=== PATIENT | female | born 1945 | race Asian ===

== ENCOUNTER 2017-08-06 13:23 | Inpatient (IN) | payer OTHER | END 2017-08-11 10:11 | disposition still patient (30) | LOC: PAVB 13:23 | PROVIDERS: ADMIT Family Medicine | DX: Z51.89 Encounter for other specified aftercare (principal) ==

== ENCOUNTER 2017-08-07 04:28 | Outpatient (CLI) | payer OTHER ==
[2017-08-07 04:48] LABS: PLATELET COUNT 391 K/uL (152-353)
[2017-08-07 05:12] LABS: POTASSIUM 4.2 mmol/L (3.6-5.2); SODIUM 138 mmol/L (136-145)
== END 2017-08-07 19:03 | disposition home or self-care (01) ==
LOC: LAB 04:28
PROVIDERS: Family Medicine
DX: D50.8 Other iron deficiency anemias (principal); F32.89 Other specified depressive episodes; Z16.24 Resistance to multiple antibiotics
CPT/HCPCS: 80053; 82728; 83540; 85027; 87081

== ENCOUNTER 2017-08-11 10:25 | Inpatient (IN) | payer OTHER | END 2017-09-11 13:04 | disposition still patient (30) | LOC: PAVB 10:25 | PROVIDERS: ADMIT Family Medicine ==

== ENCOUNTER 2017-09-11 14:15 | Inpatient (IN) | payer OTHER | END 2017-10-11 09:25 | disposition still patient (30) | LOC: PAVB 14:15 | PROVIDERS: ADMIT Family Medicine ==

== ENCOUNTER 2017-10-11 10:06 | Inpatient (IN) | payer OTHER | END 2017-11-11 09:45 | disposition still patient (30) | LOC: PAVB 10:06 | PROVIDERS: ADMIT Family Medicine ==

== ENCOUNTER 2017-11-11 10:53 | Inpatient (IN) | payer OTHER | END 2017-12-12 10:00 | disposition still patient (30) | LOC: PAVB 10:53 | PROVIDERS: ADMIT Family Medicine ==

== ENCOUNTER 2017-12-12 11:08 | Inpatient (IN) | payer OTHER | END 2018-01-09 09:24 | disposition still patient (30) | LOC: PAVB 11:08 | PROVIDERS: ADMIT Family Medicine ==

== ENCOUNTER 2018-01-09 10:31 | Inpatient (IN) | payer OTHER | END 2018-02-09 08:00 | disposition still patient (30) | LOC: PAVB 10:31 | PROVIDERS: ADMIT Family Medicine ==

== ENCOUNTER 2018-01-13 04:48 | Outpatient (CLI) | payer OTHER ==
[2018-01-13 05:23] LABS: PLATELET COUNT 328 K/uL (152-353)
[2018-01-13 05:42] LABS: POTASSIUM 4.1 mmol/L (3.6-5.2)
== END 2018-01-13 19:17 | disposition home or self-care (01) ==
LOC: LABW 04:48
PROVIDERS: Family Medicine
DX: D50.8 Other iron deficiency anemias (principal)
CPT/HCPCS: 36415; 80053; 83540; 85027

== ENCOUNTER 2018-02-09 09:00 | Inpatient (IN) | payer OTHER | END 2018-03-11 09:09 | disposition still patient (30) | LOC: PAVB 09:00 | PROVIDERS: ADMIT Family Medicine ==

== ENCOUNTER 2018-03-11 10:15 | Inpatient (IN) | payer OTHER | END 2018-04-11 08:57 | disposition still patient (30) | LOC: PAVB 10:15 | PROVIDERS: ADMIT Family Medicine ==

== ENCOUNTER 2018-03-18 09:04 | Outpatient (CLI) | payer OTHER | END 2018-03-18 19:54 | disposition home or self-care (01) | LOC: LAB 09:04 | DX: R82.99 Other abnormal findings in urine (principal) | CPT/HCPCS: 81000; 87077; 87086; 87088; 87186 ==

== ENCOUNTER 2018-04-11 10:13 | Inpatient (IN) | payer OTHER | END 2018-05-11 15:03 | disposition still patient (30) | LOC: PAVB 10:13 | PROVIDERS: ADMIT Family Medicine ==

== ENCOUNTER 2018-05-11 15:57 | Inpatient (IN) | payer OTHER | END 2018-06-11 08:00 | disposition still patient (30) | LOC: PAVB 15:57 | PROVIDERS: ADMIT Family Medicine ==

== ENCOUNTER 2018-06-11 09:00 | Inpatient (IN) | payer OTHER | END 2018-07-12 10:22 | disposition still patient (30) | LOC: PAVB 09:00 | PROVIDERS: ADMIT Family Medicine ==

== ENCOUNTER 2018-07-12 10:38 | Inpatient (IN) | payer OTHER | END 2018-08-11 09:38 | disposition still patient (30) | LOC: PAVB 10:38 | PROVIDERS: ADMIT Family Medicine ==

== ENCOUNTER 2018-08-11 12:31 | Inpatient (IN) | payer OTHER | END 2018-09-11 08:12 | disposition still patient (30) | LOC: PAVB 12:31 → PAVA 08-23 15:00 | PROVIDERS: ADMIT Family Medicine ==

== ENCOUNTER 2018-09-11 08:35 | Inpatient (IN) | payer OTHER | END 2018-10-11 08:07 | disposition still patient (30) | LOC: PAVA 08:35 | PROVIDERS: ADMIT Family Medicine ==

== ENCOUNTER 2018-10-11 08:25 | Inpatient (IN) | payer OTHER | END 2018-11-11 10:23 | disposition still patient (30) | LOC: PAVA 08:25 | PROVIDERS: ADMIT Family Medicine ==

== ENCOUNTER 2018-11-01 20:44 | Emergency (ER) | payer OTHER ==
[~2018-11-01] VITALS: Ht 160 cm; Wt 59.4 kg
[2018-11-01 22:18] VITALS: BP 148/83; TEMP 98.2
== END 2018-11-01 22:22 ==
LOC: ED 20:44
DX: Z51.89 Encounter for other specified aftercare (principal); W06.XXXA Fall from bed, initial encounter; Y92.128 Other place in nursing home as the place of occurrence of the external cause
CPT/HCPCS: 99282

== ENCOUNTER 2018-11-11 11:02 | Inpatient (IN) | payer OTHER | END 2018-12-12 14:18 | disposition still patient (30) | LOC: PAVA 11:02 | PROVIDERS: ADMIT Family Medicine ==

== ENCOUNTER 2018-12-12 14:18 | Inpatient (IN) | payer OTHER | END 2019-01-09 09:16 | disposition still patient (30) | LOC: PAVA 14:18 | PROVIDERS: ADMIT Family Medicine ==

== ENCOUNTER 2018-12-24 02:46 | Emergency (ER) | payer OTHER ==
[~2018-12-24] VITALS: Ht 160 cm; Wt 59.4 kg
[2018-12-24 04:13] VITALS: BP 138/88; TEMP 98.1
== END 2018-12-24 04:14 ==
LOC: ED 02:46
DX: K94.29 Other complications of gastrostomy (principal)
CPT/HCPCS: 99282

== ENCOUNTER 2019-01-09 10:09 | Inpatient (IN) | payer OTHER | END 2019-02-09 07:57 | disposition still patient (30) | LOC: PAVA 10:09 | PROVIDERS: ADMIT Family Medicine ==

== ENCOUNTER 2019-02-07 17:45 | Outpatient (CLI) | payer OTHER ==
[2019-02-07 18:07] LABS: PLATELET COUNT 219 K/uL (152-353)
[2019-02-07 18:20] LABS: POTASSIUM 4.6 mmol/L (3.6-5.2)
== END 2019-02-07 19:54 | disposition home or self-care (01) ==
LOC: LAB 17:45
PROVIDERS: Family Medicine
DX: D64.9 Anemia, unspecified (principal); R68.89 Other general symptoms and signs; R79.89 Other specified abnormal findings of blood chemistry
CPT/HCPCS: 36415; 80053; 83540; 85027

== ENCOUNTER 2019-02-09 08:39 | Inpatient (IN) | payer OTHER | END 2019-03-11 09:44 | disposition still patient (30) | LOC: PAVA 08:39 | PROVIDERS: ADMIT Family Medicine ==

== ENCOUNTER 2019-03-11 11:07 | Inpatient (IN) | payer OTHER | END 2019-04-11 08:14 | disposition still patient (30) | LOC: PAVA 11:07 | PROVIDERS: ADMIT Family Medicine | DX: Z51.89 Encounter for other specified aftercare (principal) ==

== ENCOUNTER 2019-04-11 08:32 | Inpatient (IN) | payer OTHER | END 2019-05-11 08:32 | disposition still patient (30) | LOC: PAVA 08:32 | PROVIDERS: ADMIT Family Medicine ==

== ENCOUNTER 2019-05-11 09:24 | Inpatient (IN) | payer OTHER | END 2019-06-11 09:09 | disposition still patient (30) | LOC: PAVA 09:24 | PROVIDERS: ADMIT Family Medicine ==

== ENCOUNTER 2019-05-28 13:36 | Outpatient (CLI) | payer OTHER | END 2019-05-28 23:07 | disposition home or self-care (01) | LOC: RAD 13:36 | DX: M25.511 Pain in right shoulder (principal) ==

== ENCOUNTER 2019-06-11 10:19 | Inpatient (IN) | payer OTHER | END 2019-07-12 16:00 | disposition still patient (30) | LOC: PAVA 10:19 | PROVIDERS: ADMIT Family Medicine ==

== ENCOUNTER 2019-07-12 16:01 | Inpatient (IN) | payer OTHER | END 2019-08-11 08:07 | disposition still patient (30) | LOC: PAVA 16:01 | PROVIDERS: ADMIT Family Medicine ==

== ENCOUNTER 2019-07-13 03:41 | Outpatient (CLI) | payer OTHER ==
[2019-07-13 06:43] LABS: PLATELET COUNT 207 K/uL (152-353)
[2019-07-13 08:17] LABS: POTASSIUM 4.5 mmol/L (3.6-5.2)
== END 2019-07-13 21:47 ==
LOC: LAB 03:41
PROVIDERS: Family Medicine
DX: D50.8 Other iron deficiency anemias (principal); D64.89 Other specified anemias
CPT/HCPCS: 36415; 80053; 83540; 85027

== ENCOUNTER 2019-08-11 09:18 | Inpatient (IN) | payer OTHER ==
[2019-09-10] MEDS ORDERED: PROTEINE1 PEG (21:23)
[2019-09-10] MEDS ORDERED: HALOPERIDOL0.5 MG PO (21:27)
[2019-09-10] MEDS ORDERED: MILK OF MAGNESI1 SU1 PO (21:30)
[2019-09-10] MEDS ORDERED: TYLENOL325 MG PEG (21:31)
[2019-09-10] MEDS ORDERED: AMLO2.5T PO (21:32)
[2019-09-10] MEDS ORDERED: LEXAPRO10 MG PEG (21:33)
[2019-09-10] MEDS ORDERED: DONE5TAB PO (21:33)
[2019-09-10] MEDS ORDERED: EQL IRON SUPPL325 M1 PO (21:34)
[2019-09-10] MEDS ORDERED: MULT VITAMI1 PEG (21:35)
[2019-09-10] MEDS ORDERED: OMEP20CA PO (21:36)
[2019-09-10] MEDS ORDERED: JUVE1 PEG (21:37)
== END 2019-09-11 09:04 | disposition still patient (30) ==
LOC: PAVA 09:18
PROVIDERS: ADMIT Family Medicine

== ENCOUNTER 2019-09-10 07:19 | Emergency (ER) | payer OTHER ==
[~2019-09-10] VITALS: Ht 160 cm; Wt 59.4 kg
[2019-09-10 08:20] LABS: PLATELET COUNT 231 K/uL (152-353)
[2019-09-10 08:50] VITALS: BP 136/81; TEMP 98.3
[2019-09-10] MEDS ORDERED: PROTEINE1 PEG (21:23)
[2019-09-10] MEDS ORDERED: HALOPERIDOL0.5 MG PO (21:27)
[2019-09-10] MEDS ORDERED: MILK OF MAGNESI1 SU1 PO (21:30)
[2019-09-10] MEDS ORDERED: TYLENOL325 MG PEG (21:31)
[2019-09-10] MEDS ORDERED: AMLO2.5T PO (21:32)
[2019-09-10] MEDS ORDERED: DONE5TAB PO (21:33)
[2019-09-10] MEDS ORDERED: LEXAPRO10 MG PEG (21:33)
[2019-09-10] MEDS ORDERED: EQL IRON SUPPL325 M1 PO (21:34)
[2019-09-10] MEDS ORDERED: MULT VITAMI1 PEG (21:35)
[2019-09-10] MEDS ORDERED: OMEP20CA PO (21:36)
[2019-09-10] MEDS ORDERED: JUVE1 PEG (21:37)
== END 2019-09-10 08:50 ==
LOC: ED 07:19
PROVIDERS: Emergency Medicine
DX: R10.84 Generalized abdominal pain (principal); R14.1 Gas pain; K59.09 Other constipation
CPT/HCPCS: 85027; 99283

== ENCOUNTER 2019-09-10 11:15 | Inpatient (IN) | payer OTHER ==
[2019-09-10] VITALS (7 sets, daily range): BP systolic 107–130; BP diastolic 63–92; TEMP 98.9–100.2; Ht 160 cm; Wt 65.8 kg
[~2019-09-10] VITALS: Ht 160 cm; Wt 65.8 kg
[2019-09-10 12:12] LABS: POTASSIUM 3.9 mmol/L (3.6-5.2)
[2019-09-10] MEDS ORDERED: PROTEINE1 PEG (21:23)
[2019-09-10] MEDS ORDERED: HALOPERIDOL0.5 MG PO (21:27)
[2019-09-10] MEDS ORDERED: MILK OF MAGNESI1 SU1 PO (21:30)
[2019-09-10] MEDS ORDERED: TYLENOL325 MG PEG (21:31)
[2019-09-10] MEDS ORDERED: AMLO2.5T PO (21:32)
[2019-09-10] MEDS ORDERED: LEXAPRO10 MG PEG (21:33)
[2019-09-10] MEDS ORDERED: DONE5TAB PO (21:33)
[2019-09-10] MEDS ORDERED: EQL IRON SUPPL325 M1 PO (21:34)
[2019-09-10] MEDS ORDERED: MULT VITAMI1 PEG (21:35)
[2019-09-10] MEDS ORDERED: OMEP20CA PO (21:36)
[2019-09-10] MEDS ORDERED: JUVE1 PEG (21:37)
[2019-09-11 00:25] VITALS: BP 143/85; TEMP 98.5
[2019-09-11 04:00] VITALS: BP 116/84; TEMP 98.7
[2019-09-11 05:08] LABS: PLATELET COUNT 238 K/uL (152-353)
[2019-09-11 06:01] LABS: POTASSIUM 3.8 mmol/L (3.6-5.2)
[2019-09-11 08:00] VITALS: BP 146/81; TEMP 98.9
[2019-09-11 12:00] VITALS: BP 152/81; TEMP 97.4
== END 2019-09-11 14:30 | DRG 641 ==
LOC: ED 11:20 → MED/SURG 12:40
PROVIDERS: Emergency Medicine; ADMIT Family Medicine
DX: E86.0 Dehydration (principal); G40.802 Other epilepsy, not intractable, without status epilepticus; K56.41 Fecal impaction; R50.9 Fever, unspecified; E11.9 Type 2 diabetes mellitus without complications; I10 Essential (primary) hypertension; G30.8 Other Alzheimer's disease; F02.80 Dementia in other diseases classified elsewhere, unspecified severity, without behavioral disturbance, psychotic disturbance, mood disturbance, and anxiety
CPT/HCPCS: 36415; 80048; 80053; 81000; 83605; 85027; 87040; 87502; 87651; 99283; J7120

== ENCOUNTER 2019-09-11 11:06 | Inpatient (IN) | payer OTHER ==
[~2019-09-11 11:06] MED LIST: AMLO2.5T PO; DONE5TAB PO; EQL IRON SUPPL325 M1 PO; HALOPERIDOL0.5 MG PO; JUVE1 PEG; LEXAPRO10 MG PEG; MILK OF MAGNESI1 SU1 PO; MULT VITAMI1 PEG; OMEP20CA PO; PROTEINE1 PEG; TYLENOL325 MG PEG
== END 2019-10-11 08:00 | disposition still patient (30) ==
LOC: PAVA 11:06
PROVIDERS: ADMIT Family Medicine

== ENCOUNTER 2019-09-14 03:54 | Outpatient (CLI) | payer OTHER ==
[2019-09-14 05:46] LABS: POTASSIUM 4.5 mmol/L (3.6-5.2)
== END 2019-09-14 19:22 | disposition home or self-care (01) ==
LOC: LAB 03:54
PROVIDERS: Family Medicine
DX: R79.89 Other specified abnormal findings of blood chemistry (principal); R10.9 Unspecified abdominal pain
CPT/HCPCS: 80048

== ENCOUNTER 2019-10-11 09:44 | Inpatient (IN) | payer OTHER | END 2019-11-11 08:00 | disposition still patient (30) | LOC: PAVA 09:44 | PROVIDERS: ADMIT Family Medicine ==

== ENCOUNTER 2019-11-11 08:32 | Inpatient (IN) | payer OTHER | END 2019-12-12 09:32 | disposition still patient (30) | LOC: PAVA 08:32 | PROVIDERS: ADMIT Family Medicine ==

== ENCOUNTER 2019-12-12 09:52 | Inpatient (IN) | payer OTHER | END 2020-01-10 12:47 | disposition still patient (30) | LOC: PAVA 09:52 | PROVIDERS: ADMIT Family Medicine ==

== ENCOUNTER 2020-01-10 13:09 | Inpatient (IN) | payer OTHER | END 2020-02-10 09:00 | disposition still patient (30) | LOC: PAVA 13:09 | PROVIDERS: ADMIT Family Medicine ==

== ENCOUNTER 2020-01-12 05:16 | Outpatient (CLI) | payer OTHER ==
[2020-01-12 07:37] LABS: PLATELET COUNT 229 K/uL (152-353)
[2020-01-12 08:14] LABS: POTASSIUM 3.5 mmol/L (3.6-5.2)
== END 2020-01-12 19:32 | disposition home or self-care (01) ==
LOC: LAB 05:16
PROVIDERS: Family Medicine
DX: D64.89 Other specified anemias (principal); D50.8 Other iron deficiency anemias; K21.9 Gastro-esophageal reflux disease without esophagitis
CPT/HCPCS: 80053; 83540; 85027

== ENCOUNTER 2020-02-10 09:33 | Inpatient (IN) | payer OTHER | END 2020-03-11 08:04 | disposition still patient (30) | LOC: PAVA 09:33 | PROVIDERS: ADMIT Family Medicine ==

== ENCOUNTER 2020-03-11 08:57 | Inpatient (IN) | payer OTHER | END 2020-04-11 08:13 | disposition still patient (30) | LOC: PAVA 08:57 | PROVIDERS: ADMIT Family Medicine | CPT/HCPCS: 87635; U0002 ==

== ENCOUNTER 2020-03-11 17:27 | Outpatient (CLI) | payer OTHER ==
[2020-03-11 17:47] LABS: PLATELET COUNT 210 K/uL (152-353)
== END 2020-03-11 21:50 | disposition home or self-care (01) ==
LOC: LABW 17:27
PROVIDERS: Family Medicine
DX: R50.9 Fever, unspecified (principal); R82.998 Other abnormal findings in urine
CPT/HCPCS: 36415; 81000; 85027; 87088

== ENCOUNTER 2020-04-11 08:48 | Inpatient (IN) | payer OTHER | END 2020-05-11 08:27 | disposition still patient (30) | LOC: PAVA 08:48 | PROVIDERS: ADMIT Family Medicine | CPT/HCPCS: 87635; U0002 ==

== ENCOUNTER 2020-05-11 09:55 | Inpatient (IN) | payer OTHER | END 2020-06-11 08:24 | disposition still patient (30) | LOC: PAVA 09:55 | PROVIDERS: ADMIT Family Medicine ==

== ENCOUNTER 2020-05-26 13:43 | Outpatient (CLI) | payer OTHER ==
[2020-05-26 14:03] LABS: PLATELET COUNT 280 K/uL (152-353)
[2020-05-26 14:23] LABS: POTASSIUM 4.3 mmol/L (3.6-5.2); SODIUM 141 mmol/L (136-145)
== END 2020-05-26 22:54 | disposition home or self-care (01) ==
LOC: LAB 13:43
PROVIDERS: Family Medicine
DX: R61 Generalized hyperhidrosis (principal)
CPT/HCPCS: 80053; 82550; 84443; 84484; 85027

== ENCOUNTER 2020-05-26 13:48 | Outpatient (CLI) | payer OTHER | END 2020-05-26 22:54 | disposition home or self-care (01) | LOC: RESP 13:48 | DX: R61 Generalized hyperhidrosis (principal) | CPT/HCPCS: 93005 ==

== ENCOUNTER 2020-06-11 09:04 | Inpatient (IN) | payer OTHER | END 2020-07-12 10:51 | disposition still patient (30) | LOC: PAVA 09:04 | PROVIDERS: ADMIT Family Medicine ==

== ENCOUNTER 2020-07-04 23:29 | Emergency (ER) | payer OTHER ==
[~2020-07-04] VITALS: Ht 160 cm; Wt 65.8 kg
[2020-07-04 23:45] VITALS: BP 152/126; TEMP 99.5
== END 2020-07-04 23:45 | disposition home or self-care (01) ==
LOC: ED 23:29
DX: K94.23 Gastrostomy malfunction (principal)
CPT/HCPCS: 99282

== ENCOUNTER 2020-07-12 11:35 | Inpatient (IN) | payer OTHER | END 2020-08-11 09:34 | disposition still patient (30) | LOC: PAVA 11:35 | PROVIDERS: ADMIT Family Medicine ==

== ENCOUNTER 2020-07-14 06:34 | Outpatient (CLI) | payer OTHER ==
[2020-07-14 07:32] LABS: PLATELET COUNT 290 K/uL (152-353)
[2020-07-14 17:33] LABS: POTASSIUM 4.2 mmol/L (3.6-5.2)
== END 2020-07-14 21:46 | disposition home or self-care (01) ==
LOC: LAB 06:34
PROVIDERS: Family Medicine
DX: D64.89 Other specified anemias (principal); D50.8 Other iron deficiency anemias; K21.9 Gastro-esophageal reflux disease without esophagitis; F01.51 Vascular dementia, unspecified severity, with behavioral disturbance
CPT/HCPCS: 80053; 83540; 85027

== ENCOUNTER 2020-08-11 10:56 | Inpatient (IN) | payer OTHER | END 2020-09-11 08:00 | disposition still patient (30) | LOC: PAVA 10:56 | PROVIDERS: ADMIT Family Medicine ==

== ENCOUNTER 2020-09-11 09:00 | Inpatient (IN) | payer OTHER | END 2020-10-11 08:39 | disposition still patient (30) | LOC: PAVA 09:00 | PROVIDERS: ADMIT Family Medicine; ATTEND Family Medicine ==

== ENCOUNTER 2020-10-11 09:38 | Inpatient (IN) | payer OTHER | END 2020-11-11 08:30 | disposition still patient (30) | LOC: PAVA 09:38 | PROVIDERS: ADMIT Family Medicine; ATTEND Family Medicine ==

== ENCOUNTER 2020-11-11 09:01 | Inpatient (IN) | payer OTHER | END 2020-12-12 13:10 | disposition home or self-care (01) | LOC: PAVA 09:01 | PROVIDERS: ADMIT Family Medicine; ATTEND Family Medicine ==

== ENCOUNTER 2020-11-17 15:01 | Outpatient (CLI) | payer OTHER | END 2020-11-17 21:19 | disposition home or self-care (01) | LOC: LAB 15:01 | PROVIDERS: ATTEND Family Medicine | DX: K94.22 Gastrostomy infection (principal) | CPT/HCPCS: 87070; 87077; 87186; 87205 ==

== ENCOUNTER 2022-07-20 16:05 | Inpatient (IN) | payer OTHER | END 2022-08-11 10:39 | disposition still patient (30) | LOC: PAVC 16:05 | PROVIDERS: ADMIT Internal Medicine; ATTEND Internal Medicine ==

== ENCOUNTER 2022-07-21 06:58 | Outpatient (CLI) | payer OTHER | END 2022-07-21 19:24 | disposition home or self-care (01) | LOC: LAB 06:58 | PROVIDERS: ATTEND Internal Medicine | DX: R68.89 Other general symptoms and signs (principal); B96.89 Other specified bacterial agents as the cause of diseases classified elsewhere | CPT/HCPCS: 87081 ==

== ENCOUNTER 2022-07-23 15:50 | Outpatient (CLI) | payer OTHER ==
[2022-07-23 16:18] LABS: PLATELET COUNT 383 K/uL (152-353)
[2022-07-23 16:36] LABS: POTASSIUM 4.4 mmol/L (3.6-5.2)
== END 2022-07-23 19:24 | disposition home or self-care (01) ==
LOC: LAB 15:50
PROVIDERS: ATTEND Internal Medicine
DX: Z02.0 Encounter for examination for admission to educational institution (principal); R89.5 Abnormal microbiological findings in specimens from other organs, systems and tissues
CPT/HCPCS: 36415; 80053; 84134; 85027; 85652; 87070; 87077; 87186; 87205

== ENCOUNTER 2022-07-25 12:25 | Outpatient (CLI) | payer OTHER | END 2022-07-25 18:52 | disposition home or self-care (01) | LOC: LAB 12:25 | PROVIDERS: ATTEND Internal Medicine | DX: R31.9 Hematuria, unspecified (principal) | CPT/HCPCS: 81000; 87077; 87086; 87088; 87186 ==

== ENCOUNTER 2022-07-30 11:57 | Outpatient (CLI) | payer OTHER ==
[~2022-07-30] VITALS: Ht 157.5 cm; Wt 54.4 kg
[2022-07-30 13:44] VITALS: BP 149/41; TEMP 98.7
--- NOTE | 2022-07-30 14:04 | NUR ---
1344 PT ARRIVED TO ROOM 1128 VIA [facility] CHAIR ACCOMPANIED BY [facility]. VS OBTAINED. 22G PIV TO RFA WILL NOT FLUSH. IV REMOVED INTACT. SITE CARE PROVIDED. 1400 22G PIV TO LFA X 1 ATTEMPT. SECURED WITH TEGADERM 1402 ORDERS SCANNED TO PHARMACY.
--- NOTE | 2022-07-30 14:50 | NUR ---
1449 ROCEPHIN STARTED INFUSING AT THIS TIME. WITH NO COMPLICATIONS
--- NOTE | 2022-07-30 15:11 | NUR ---
NOTIFIED CHARISSA ON CHALL PT IS READY FOR D/C
--- NOTE | 2022-07-30 15:14 | NUR ---
1513 INFUSION COMPLETED PIV TO RFA FLUSHED WITH 10ML NS. CAPPED WITH CUROS
--- NOTE | 2022-07-30 15:20 | NUR ---
PT ASSISTED OUT OF FACILITY VIA [facility] CHAIR. ACCOMPANIED BY [facility].
== END 2022-07-30 20:33 | disposition home or self-care (01) ==
LOC: INF 11:57
PROVIDERS: ATTEND Internal Medicine
DX: T07.XXXA Unspecified multiple injuries, initial encounter (principal)
CPT/HCPCS: 96365; J0696

== ENCOUNTER 2022-07-31 10:49 | Outpatient (CLI) | payer OTHER ==
[~2022-07-31] VITALS: Ht 154.9 cm; Wt 54.4 kg
[2022-07-31 10:49] VITALS: BP 160/75; TEMP 98.1
[2022-07-31 12:15] VITALS: BP 156/68; TEMP 98
== END 2022-07-31 20:22 | disposition home or self-care (01) ==
LOC: INF 10:49
PROVIDERS: ATTEND Internal Medicine
DX: T07.XXXA Unspecified multiple injuries, initial encounter (principal)
CPT/HCPCS: 96365; J0696

== ENCOUNTER 2022-08-11 14:51 | Inpatient (IN) | payer OTHER | END 2022-09-11 12:15 | disposition still patient (30) | LOC: PAVC 14:51 | PROVIDERS: ADMIT Internal Medicine; ATTEND Internal Medicine ==

== ENCOUNTER 2022-09-11 14:15 | Inpatient (IN) | payer OTHER | END 2022-10-11 15:33 | disposition still patient (30) | LOC: PAVC 14:15 | PROVIDERS: ADMIT Internal Medicine; ATTEND Internal Medicine ==

== ENCOUNTER 2022-10-11 16:21 | Inpatient (IN) | payer OTHER | END 2022-11-11 10:55 | disposition still patient (30) | LOC: PAVC 16:21 | PROVIDERS: ADMIT Internal Medicine; ATTEND Internal Medicine ==

== ENCOUNTER 2022-11-11 14:27 | Inpatient (IN) | payer OTHER | END 2022-12-12 09:29 | disposition still patient (30) | LOC: PAVC 14:27 | PROVIDERS: ADMIT Internal Medicine; ATTEND Internal Medicine ==

== ENCOUNTER 2022-12-12 12:31 | Inpatient (IN) | payer OTHER | END 2023-01-09 15:22 | disposition still patient (30) | LOC: PAVC 12:31 | PROVIDERS: ADMIT Internal Medicine; ATTEND Internal Medicine ==

== ENCOUNTER 2023-01-09 08:15 | Outpatient (CLI) | payer OTHER ==
[2023-01-09 08:28] LABS: PLATELET COUNT 288 K/uL (152-353)
[2023-01-09 08:42] LABS: POTASSIUM 4.5 mmol/L (3.6-5.2)
== END 2023-01-09 19:11 | disposition home or self-care (01) ==
LOC: LAB 08:15
PROVIDERS: ATTEND Internal Medicine
DX: G30.9 Alzheimer's disease, unspecified (principal); Z79.899 Other long term (current) drug therapy
CPT/HCPCS: 80053; 80061; 85027

== ENCOUNTER 2023-01-09 16:17 | Inpatient (IN) | payer OTHER | END 2023-02-09 12:53 | disposition still patient (30) | LOC: PAVC 16:17 | PROVIDERS: ADMIT Internal Medicine; ATTEND Internal Medicine ==

== ENCOUNTER 2023-02-09 13:26 | Inpatient (IN) | payer OTHER | END 2023-03-11 16:43 | disposition still patient (30) | LOC: PAVC 13:26 | PROVIDERS: ADMIT Internal Medicine; ATTEND Internal Medicine ==

== ENCOUNTER 2023-03-11 17:50 | Inpatient (IN) | payer OTHER ==
[~2023-03-11] VITALS: Ht 167.6 cm; Wt 54.4 kg
== END 2023-04-11 12:20 | disposition still patient (30) ==
LOC: PAVC 17:50
PROVIDERS: ADMIT Internal Medicine; ATTEND Internal Medicine

== ENCOUNTER 2023-04-05 12:13 | Outpatient (CLI) | payer OTHER | END 2023-04-05 18:59 | disposition home or self-care (01) | LOC: LAB 12:13 | PROVIDERS: ATTEND Internal Medicine | DX: Z48.00 Encounter for change or removal of nonsurgical wound dressing (principal) | CPT/HCPCS: 87070; 87077; 87186; 87205 ==

== ENCOUNTER 2023-04-11 08:25 | Outpatient (CLI) | payer OTHER ==
[~2023-04-11] VITALS: Ht 167.6 cm; Wt 24.6 kg
[2023-04-11 08:30] VITALS: BP 144/57; TEMP 97.1
[2023-04-11 09:37] VITALS: BP 166/74; TEMP 98.4
== END 2023-04-11 19:10 | disposition home or self-care (01) ==
LOC: INF 08:25
PROVIDERS: ATTEND Internal Medicine
DX: Z48.00 Encounter for change or removal of nonsurgical wound dressing (principal); B96.20 Unspecified Escherichia coli [E. coli] as the cause of diseases classified elsewhere
CPT/HCPCS: 96365; J1580

== ENCOUNTER 2023-04-11 12:33 | Inpatient (IN) | payer OTHER | END 2023-05-11 17:43 | disposition still patient (30) | LOC: PAVC 12:33 | PROVIDERS: ADMIT Internal Medicine; ATTEND Internal Medicine ==

== ENCOUNTER 2023-04-12 08:04 | Outpatient (CLI) | payer OTHER ==
[~2023-04-12] VITALS: Ht 167.6 cm; Wt 54.4 kg
[2023-04-12 08:10] VITALS: BP 181/63; TEMP 98.9
== END 2023-04-12 18:55 | disposition home or self-care (01) ==
LOC: INF 08:04
PROVIDERS: ATTEND Internal Medicine
DX: Z48.00 Encounter for change or removal of nonsurgical wound dressing (principal); B96.20 Unspecified Escherichia coli [E. coli] as the cause of diseases classified elsewhere
CPT/HCPCS: 96365; J1580

== ENCOUNTER 2023-04-13 08:07 | Outpatient (CLI) | payer OTHER ==
[~2023-04-13] VITALS: Ht 167.6 cm; Wt 54.4 kg
== END 2023-04-13 19:28 | disposition home or self-care (01) ==
LOC: INF 08:07
PROVIDERS: ATTEND Internal Medicine
DX: Z48.00 Encounter for change or removal of nonsurgical wound dressing (principal); B96.20 Unspecified Escherichia coli [E. coli] as the cause of diseases classified elsewhere
CPT/HCPCS: 96365; J1580

== ENCOUNTER 2023-04-14 08:53 | Outpatient (CLI) | payer OTHER ==
[~2023-04-14] VITALS: Ht 167.6 cm; Wt 54.4 kg
== END 2023-04-14 18:53 ==
LOC: INF 08:53
PROVIDERS: ATTEND Internal Medicine
DX: Z48.00 Encounter for change or removal of nonsurgical wound dressing (principal); B96.20 Unspecified Escherichia coli [E. coli] as the cause of diseases classified elsewhere
CPT/HCPCS: 96365; J1580

== ENCOUNTER 2023-04-15 08:37 | Outpatient (CLI) | payer OTHER ==
[~2023-04-15] VITALS: Ht 167.6 cm; Wt 54.0 kg
[2023-04-15 08:41] VITALS: BP 168/66; TEMP 98
== END 2023-04-15 19:20 | disposition home or self-care (01) ==
LOC: INF 08:37
PROVIDERS: ATTEND Internal Medicine
DX: Z48.00 Encounter for change or removal of nonsurgical wound dressing (principal); B96.20 Unspecified Escherichia coli [E. coli] as the cause of diseases classified elsewhere
CPT/HCPCS: 96365; J1580

== ENCOUNTER 2023-04-16 07:53 | Outpatient (CLI) | payer OTHER ==
[~2023-04-16] VITALS: Ht 167.6 cm; Wt 54.0 kg
[2023-04-16 08:02] VITALS: BP 172/90; TEMP 98.8
== END 2023-04-16 18:53 | disposition home or self-care (01) ==
LOC: INF 07:53
PROVIDERS: ATTEND Internal Medicine
DX: Z48.00 Encounter for change or removal of nonsurgical wound dressing (principal); B96.20 Unspecified Escherichia coli [E. coli] as the cause of diseases classified elsewhere
CPT/HCPCS: 96365; J1580

== ENCOUNTER 2023-07-16 06:28 | Outpatient (CLI) | payer OTHER ==
[2023-07-16 14:25] LABS: PLATELET COUNT 302 K/uL (152-353)
[2023-07-16 14:53] LABS: POTASSIUM 4.9 mmol/L (3.6-5.2)
== END 2023-07-16 22:00 | disposition home or self-care (01) ==
LOC: LAB 06:28
PROVIDERS: ATTEND Internal Medicine
DX: G30.9 Alzheimer's disease, unspecified (principal); Z79.899 Other long term (current) drug therapy
CPT/HCPCS: 36415; 80053; 80061; 85027